=== PATIENT | female | born 1960 | race Two or more races ===

== ENCOUNTER → 2024-10-01 | Outpatient (CLI) | payer BC, SELFPAY ==
--- NOTE | 2024-10-01 08:15 | XR_ITS ---
Examination: Diagnostic digital mammography, unilateral, left Computer aided detection 3-D breast Tomosynthesis, unilateral Date and time of exam: October 01, 2024 0800 hours INDICATIONS: Mammogram March 02, 2024 6 mm focal asymmetry retroareolar region left breast Technique: Nonmagnified MLO, CC views of the left breast have been obtained, reconstructed from 3-D Tomosynthesis images. R2 computer aided detection program utilized for evaluation of suspicious masses and/or abnormal calcifications. 3-D Tomosynthesis images obtained. Findings: Scattered areas of fibroglandular density No suspicious mass noted Impression: BI-RADS category 2: Benign findings Return to yearly follow-up mammography
== END | disposition home or self-care (01) ==
LOC: CDIM 07:52
PROVIDERS: PCP Registered Nurse; Referring Provider Registered Nurse; Visit Provider Registered Nurse
DX: R92.322 Mammographic fibroglandular density, left breast (principal)
CPT/HCPCS: 77061; 77065; G0279

== ENCOUNTER 2025-05-05 01:38 | Emergency (ER) | payer BC, SELFPAY ==
[2025-05-05 01:40] VITALS: BMI 36.8
[2025-05-05 02:17] VITALS: BP 181/113; PULSE 73; RESP 20; TEMP 36.9; O2SAT 97
--- NOTE | 2025-05-05 02:47 | PD.EDDIZZY ---
ED Dizzyness RME/HPI General Chief Complaint: Dizziness Stated Complaint: DIZZINESS,WEAK,NAUSEA Time Seen by Provider: 05/05/25 02:11 Arrival date/time: 05/05/25 01:38 RME / HPI RME / HPI Narrative: DR. ALVES MAIN ED EVALUATION: 64 y/o female presents to ED with sudden onset episode of vertigo occurring x 1 hour [employer]. Associated intense nausea and emesis. No preceding illness, H[place], confusion, or sensory disturbances. PMH of only HN. SHx of biliary stint placement and cholecystectomy. No tobacco use or alcohol consumption. No other concerns or complaints expressed at this time. Related Data Home Medications ?Medication ?Instructions ?Recorded ?Confirmed amlodipine 10 mg tablet 10 mg PO HS 05/09/23 05/09/23 Allergies Allergy/AdvReac Type Severity Reaction Status Date / Time No Known Allergies Allergy Verified 05/05/25 01:40 Review of Systems Review of Systems Systems Reviewed: All systems reviewed, normal except as documented Past Medical History Past Medical History CARDIAC: Positive Hypertension Social History SMOKING STATUS: Never smoker ED Exam Narrative Physical exam: GEN. APPEARANCE: The patient is alert awake oriented X-3 in no distress, lying down comfortably, does not look ill/toxic. Patient has good eye contact. Patient is cooperative. Reports mild nausea. VITALS: All vitals were reviewed and the pulse ox is 97% on room air which is normal according to my interpretation. HEENT: Normocephalic, atraumatic. Pupils are equal and reactive. No nystagmus. Oral mucosa is moist. Patent Nares NECK: Supple, nontender, no thyromegaly, no meningismus, no JVD, no step offs CHEST: Symmetrical, atraumatic, and with equal expansion , Nontender on palpation no deformity and no crepitus. CARDIOVASCULAR: Heart regular rhythm no murmur or gallop rub or extra beats. LUNGS: Clear to auscultation bilaterally with symmetrical chest rise. No laboring tachypnea or wheezing. No intercostal subcostal retraction. No rales and no rhonchi. ABDOMEN: Soft, flat, nontender to palpation, no guarding or rebound tenderness. There are no abnormal masses palpated. Active and normal bowel sounds. EXTREMITIES: Nontender. No edema. No cyanosis. Patient is able to move all 4 extremities well, with full ROM and good CSM. SKIN: Warm and dry, no jaundice or rashes noted. MUSCULOSKELETAL: No lubar or midline bony tenderness. There is no CVA tenderness. No paraspinal muscle spasm or tenderness. NEURO: Patient is LOWE x 4, Cranial nerves II through XII grossly intact. There is no focal neurologic deficits noted. GCS is 15, PNS and [employer] appear grossly intact. Normal [id number] and tandum gait. PSYCHIATRIC: Patient is in normal mood and affect, cooperative, no SI or HI or hallucinations. Course Quality Measures none Orders Category Date Time Status CT head/brain wo con Stat Exams 05/05/25 02:40 Ordered Meclizine HCl [Antivert] Med 05/05/25 02:37 Discontinued 25 mg PO X1 ONE Vital Signs Vital signs: Vital Signs Temperature 98.5 F 05/05/25 02:17 Pulse Rate 73 05/05/25 02:17 Respiratory Rate 20 05/05/25 02:17 Blood Pressure 181/113 H 05/05/25 02:17 Pulse Oximetry (%) 97 05/05/25 02:17 Oxygen Delivery Method Room Air 05/05/25 02:17 Dizziness MDM Narrative MDM Narrative:: Scribe Attestation: I, Linda Gardiner, am scribing for and in the presence of Dr. Alves. Provider Notation: Although this document has been carefully reviewed, there may still be some phonetic and other typographical errors.? These errors are purely grammatical due to imperfections in the software program and should not be construed in any way to? compromise the substance of the patient's medical care during this visit. 64 y/o female presents to ED with sudden onset episode of vertigo occurring x 1 hour [employer]. Associated intense nausea and emesis. Please see PE findings. Shortly after evaluation, patient abruptly eloped prior to diagnostic work up. I suspect peripheral vertigo. Final diagnosis is peripheral vertigo. Disposition: eloped. Patient data External records reviewed:: [facility] previous records (No prior ED records available for review.) Clinical information provided by:: patient Social determinants that could affect healthcare access:: none Patient has the following chronic illnesses:: None reported. How is presenting disease/condition affected by chronic disease/condition?: no chronic disease Evaluation data The following diagnostics were reviewed and interpreted by me:: lab results and radiology exam(s) Lab and/or radiology exams considered but not ordered:: None Interpretation Summary: Head CT and labs not performed, patient eloped. Medications / Prescriptions Medications or Prescriptions considered but not ordered:: None Medication administrations:: Medication Administration History Discontinued Medications Meclizine HCl (Meclizine Hcl 25 Mg Tablet) 25 mg PO X1 ONE Stop: 05/05/25 02:38 See above Consultations Consultation(s) initiated? (list below): No Diagnosis Dizziness Differential Diagnosis: adverse reaction to drug, benign paroxysmal positional vertigo, orthostatic hypotension, vertebral basilar insufficiency, cerebrovascular accident, acute vestibular neuronitis and transient cerebral ischemia Most likely diagnosis given after review of the tests above:: Peripheral vertigo Admission Indicated Admission indicated?: not indicated Explain why admission is indicated or not indicated:: Patient eloped. Admission Request Was there a request for admission?: No Disposition Plan Disposition Plan: other (specify) (Elopement) Discharge Plan Plan Patient Disposition: Elopement Discharge Disposition comment: Patient left prior to evaluation Patient condition on transfer: Stable Prescriptions/Referrals Prescriptions/Med Rec: No Action amlodipine 10 mg Tablet 10 mg PO HS Problem List Clinical Impression: Peripheral vertigo Patient/Caregiver Discharge Instructions Print Language: Yi
--- NOTE | 2025-05-05 02:48 | PC.NURSE ---
PT IS NOT OLD TRIAGE ,NOT IN THE BATHROOM, CALLED NO ANSWER AT ER LOBBY OR OUTSIDE.
--- NOTE | 2025-05-05 02:49 | PC.NURSE ---
SECURITY INFORMED ME THAT PT TOOK OFF ER.
== END 2025-05-05 02:50 | disposition left against medical advice (07) ==
LOC: SERX 02:50
PROVIDERS: Emergency Provider Emergency Medicine
DX: H81.399 Other peripheral vertigo, unspecified ear (principal)
CPT/HCPCS: 80053; 81001; 85025; 99283